=== PATIENT | male | born 1950 | race Caucasian/White ===

== ENCOUNTER 2019-06-03 04:57 | Inpatient (IN) ==
--- NOTE | 2019-05-28 11:31 | Anesthesiology Consultation ---
Date of Service May 28, 2019 Assessment & Plan (1) Encounter for pre-operative examination: Patient will need updated CBC and BMP prior to surgery. Check AM DOS if not done. Chart Review Chart Review: Acceptable Risk for Surgery (pending updated labs) and Patient NOT seen in Pre Admission Testing History Surgery Operation Date: 06/03/19 07:00 Proposed Procedures p Left Carotid Endarterectomy - Jose Ivory MD Height/Weight Height: 6 ft 1.5 in Weight: 98.883 kg Allergies Allergy/AdvReac Type Severity Reaction Status Date / Time No Known Allergies Allergy Verified 05/26/19 08:45 Medications Home Medications Medication Instructions Recorded Confirmed Last Taken aspirin [Aspir-81] 81 mg PO QAM 02/26/19 05/26/19 Unknown multivitamin 1 tab PO QAM 02/26/19 05/26/19 Unknown clopidogrel 75 mg tablet 75 mg PO QAM 05/13/19 05/26/19 Unknown Past Medical History Medical History Arthritis Cardiac murmur Per echo 05/19/19 mild MR only. Carotid artery stenosis Per 03/26/19 doppler, B/L > 70% stenosis of internal carotids. Carotid bruit Chronic back pain Knee pain Patient was scheduled for TKA to be done 03/26, but carotid doppler AM DOS showed severe stenosis; case canceled. Temporomandibular joint disorder POPS BILAT-HAS NEVER LOCKED Past Surgical History Surgical History History of herniorrhaphy (~1965) X 2, RIGHT AND LEFT Hx of colonoscopy Social History Smoking Status: Former smoker Smoking cigarettes per day: h/o 1ppd Do You Dip or Chew Tobacco: No Smoking End Date: 2016 Hx Alcohol Use: No Hx Substance Use: No substance use type: does not use Testing Electrocardiogram Date: 03/07/19 Findings: + NSR @ (65) Chest X-Ray Date: 03/07/19 Findings: + NAD Echocardiogram Date: 05/19/19 EF: 61% The left ventricle size and systolic function are normal. Aortic valve is trileaflet and is mildly thickened. No aortic stenosis documented. Mitral valve structure is degenerative with mild mitral regurgitation.
[2019-06-03] MEDS ORDERED: LR 15ML/HR IV SCH (06:00)
[2019-06-03] MEDS ORDERED: fentaNYL citrate 100 MCG/2 ML VIAL IV PRN (06:30)
[2019-06-03] MEDS ORDERED: ONDANSETRON INJ 2 MG/ML 2 ML VIAL IV PRN ×2 (06:30→10:46)
[2019-06-03] MEDS ORDERED: ATROPINE SULFATE 0.1 MG/ML 10ML SYR IV PRN (06:30)
[2019-06-03] MEDS ORDERED: ePHEDrine sulfate 50 MG/ML AMP IV PRN (06:30)
[2019-06-03] MEDS ORDERED: fentaNYL citrate 100 MCG/2 ML VIAL ONE ×2 (06:38)
[2019-06-03] MEDS ORDERED: LIDOCAINE HCL 2% 2 ML VIAL/AMP(20MG/ML) INFIL ONE (06:38)
[2019-06-03] MEDS ORDERED: ONDANSETRON INJ 2 MG/ML 2 ML VIAL ONE (06:38)
[2019-06-03] MEDS ORDERED: PROPOFOL IV EMULSION 10 MG/ML 20 ML VIAL IV ONE (06:38)
[2019-06-03] MEDS ORDERED: DEXAMETHASONE SOD INJ 4 MG/ML VIAL ONE (06:38)
--- NOTE | 2019-06-03 06:42 | History & Physical Bridge Note ---
Date of Service June 03, 2019 History & Physical Bridge Note I have examined the patient, reviewed the History & Physical and in the interval since the performance of the History & Physical I have noted the following changes of clinical significance: no changes noted SO at bedside all questions answered pt marked
[2019-06-03] MEDS ORDERED: BACITRACIN INJ 50,000 UNIT VIAL ONE (06:45)
[2019-06-03] MEDS ORDERED: LIDOCAINE/EPINEPHRINE 1% 20 ML VIAL ONE (06:45)
[2019-06-03] MEDS ORDERED: HEPARIN (PORCINE) 1000 UNIT/ML 10 ML (CATH LAB USE ONLY) ONE (06:45)
[2019-06-03] MEDS ORDERED: CEFAZOLIN 250 MG/ML 1 GM VIAL ONE (07:38)
[2019-06-03] MEDS ORDERED: CEFAZOLIN 2000MG 2,000 MG/15 ML SYR IV ONE (07:44)
[2019-06-03] MEDS ORDERED: SURGICEL ABSORB HEMOSTAT 2IN X 14IN TOP ONE (07:44)
[2019-06-03] MEDS ORDERED: ROCURONIUM BROMIDE 10 MG/ML 5 ML VIAL ONE ×6 (07:47→09:31)
[2019-06-03] MEDS ORDERED: ATROPINE SO4 1 MG/ML 1ML VIAL ONE (07:47)
[2019-06-03] MEDS ORDERED: ePHEDrine sulfate 50 MG/ML SYR ONE (08:11)
[2019-06-03] MEDS ORDERED: PHENYLEPHRINE 100MCG/ML 5ML SYR ONE (08:11)
--- NOTE | 2019-06-03 08:55 | Post Operative Brief Note ---
PG Immediate Post Op with CF Date of Surgery June 03, 2019 Pre & Post Diagnosis Operation Date: 06/03/19 07:00 Pre-Op Diagnosis: Carotid Stenosis Post-Op Diagnosis: Carotid Stenosis Procedure Operation Date: 06/03/19 07:00 Actual Procedures p Left Carotid Endarterectomy with Bovine Patch, Angioplasty(Left) - Jose Ivory MD Surgeon Jose Ivory MD Doctor Of Pharmacy b james chu Estimated Blood Loss 50 Findings Consistent with Post-Op Diagnosis Specimens Specimen Description: A. Left carotid plaque B. Left interlumenal at carotid bifurcation Drains Martin Drain
[2019-06-03] MEDS ORDERED: LABETALOL HCL IV 5 MG/ML 20ML IV ONE (09:30)
[2019-06-03] MEDS ORDERED: NEOSTIGMINE METHYLSULFATE 5 MG/5 ML SYR ONE (09:31)
[2019-06-03] MEDS ORDERED: PROTAMINE SULFATE 10 MG/ML 5 ML VIAL ONE (09:31)
[2019-06-03] MEDS ORDERED: GLYCOPYRROLATE 0.2 MG/ML VIAL ONE (09:31)
[2019-06-03] MEDS ORDERED: HEPARIN SOD (PORCINE) 1000 UNIT/ML 10 ML VIAL ONE (09:31)
--- NOTE | 2019-06-03 09:57 | Operative Report ---
Post Operative Report Pre & Post Diagnosis Operation Date: 06/03/19 07:00 Pre-Op Diagnosis: Carotid Stenosis Post-Op Diagnosis: Carotid Stenosis Procedure Operation Date: 06/03/19 07:00 Actual Procedures p Left Carotid Endarterectomy with Bovine Patch, Angioplasty(Left) - Jose Ivory MD The patient was brought into the operating room theater general endotracheal anesthesia the left neck and chest was prepped Betadine scrub solution properly draped roll is been pertinent transversely across the scapula systemic antibiotics given timeout was had patient identified this point 1% Xylocaine with epi was used to infiltrate just anterior of the sternocleido on the left side and incision was made approximately 4 inches long deep to subcutaneous tissue retracting the sternocleido laterally dissecting down into the neurovascular bundle facial vein was identified was elevated divided and ligated with 2-0 silk there were a few other venous branches coming over another table was pretty much ligated patient had been on Plavix hemostasis try to be very careful. We dissected down unable to dissect out the common carotid which we encircled a vessel loop then I took her dissection more cephalad and identified the superior thyroid were weakly controlled a Elena tie of 2 oh then the external carotid was encircled with vessel loop at one point while we are di ssecting away from the carotid body the patient became bradycardic but immediately recovered. Dissection into the internal carotid area was identified actually once we got the just beyond the bifurcation there is seem to be minimal dissection needed therefore terminating what appeared to be atherosclerosis right at the bifurcation we identified the hypoglossal nerve and encircled with vessel loop to retracted out of the way. We then the internal carotid was taken off to an area that felt completely normal and we used up to the vessel loop around that area. At this point systemic heparinization was given with 10,000 units waiting approximately 5 minutes in the meantime we prepped the bovine patch after 5 minutes we clamped the internal carotid area then the external and then the common carotid arteriotomy in the common carotid was made extending up towards the internal carotid which we have suspected the disease was right at the takeoff but is interesting and look like the there was no plaque that was a significant stenosis and just proximal to that there was a 2 piece of tissue that either appeared to be as an organized clot for the possibility that this been an embolus from the myxoma we took that as possibility aside and sent for permanent section separately we opened up the internal carotid just beyond the the limiting of her stenosis and the artery itself completely normal. We started dissecting out in the circular fibers to completely free up at the common carotid using 5-0 silk suture stay sutures in the plane of dissection circular V nerve conductions and inversion endarterectomy in the external and up to the internal carotid area were tapered off very nicely. The field was irrigated appeared normal. We had prepped and [place] shunt putting a silk time between flushing it at this point we inserted in the internal carotid area and excellent backbleeding control that with a vessel loop and similarly placed in the common carotid and the shunt was then placed. A vein or patch was then brought up on the field and we ablated with 6-0 Prolene suture. Completely before completing time the fact we then elevated the shunt out of the wound by the endarterectomy site clamped both with 2 hemostats divided and took out the internal carotid shunt part first control the backbleeding with bulldog clamp then removed this from the common carotid in a similar fashion control it with vascular clamp. The endarterectomy site was then suctioned out again we placed a #4 bakes dilator beyond the internal carotid area which went without any problem backbleeding was appreciated and appeared excellent. Control the backbleeding with [place] forcep. Flush the external then the common suctioned out the endarterectomy site and then tied down the patch. A few small bleeders on the suture line were controlled with 6-0 Prolene once we took the clamp off the external carotid patch appeared to be intact we then flushed the common carotid over the common carotid and hemostasis was excellent and last we took the internal carotid clamp. Flow was reestablished lap was placed in the field we reversed the heparin with 40 mg of protamine. After we thought that the operative field was readily dry elected to drain it with a Gilbert drain that was brought in between 2 heads of the sternocleido and placed along the carotid closing the wound multiple layer 202 0 Vicryl zoë for skin edges dressing was applied procedure was tolerated well by the patient estimated blood loss 50 cc the end of procedure the patient was neurologically intact and extubated. AddendFrancis PRADO was present throughout the procedure and help with retraction exposure and wound closure Surgeon Jose Ivory MD Migration Agent joss prado Estimated Blood Loss 50 Findings Consistent with Post-Op Diagnosis Specimens plaque and soft contents at stenotic area Description of Procedure merda I attest to the content of the Intraoperative Record and any orders documented therein. Any exceptions are noted below.
--- NOTE | 2019-06-03 10:02 | Anesthesiology Progress Note ---
Date of Service June 03, 2019 Anesthesia Post Procedure Vital Signs Vital Signs: Temp Pulse Pulse Resp BP Pulse Ox 06/03/19 09:55 97.5 F L 59 L 16 102/55 L 94 06/03/19 09:45 59 L 16 103/55 L 94 06/03/19 09:35 60 16 105/58 L 95 06/03/19 09:25 58 L 16 98/54 L 95 06/03/19 09:16 97.9 F 64 16 114/63 93 06/03/19 05:45 97.7 F 66 20 117/75 95 Transfer of Care Handoff Completed per policy Notes Mental Status: alert / awake / arousable and participated in evaluation Patient Amnestic to Procedure: Yes Nausea / Vomiting: adequately controlled Pain: adequately controlled Airway Patency, RR, SpO2: stable & adequate BP & HR: stable & adequate Hydration State: stable & adequate Anesthetic Complications: no major complications apparent and Pt Satisfied with anesthetic care
[2019-06-03] MEDS ORDERED: NITROGLYCERIN/D5W 100MCG/ML 250 ML IV SCH (10:46)
[2019-06-03] MEDS ORDERED: LACTATED RINGER'S 1,000 ML IV SCH (10:46)
[2019-06-03] MEDS ORDERED: ACETAMINOPHEN 325 MG TAB PO PRN (10:46)
[2019-06-03] MEDS ORDERED: MoRPHine SULFATE 4 MG/ML 1 ML CARP\\VIAL IV PRN (10:46)
[2019-06-03] MEDS: HYDROCODONE/ACETAMOPHEN 5/325MG TAB PO PRN ×2 (11:30→21:10)
--- NOTE | 2019-06-03 11:38 | Critical Care Consultation ---
Date of Consultation June 03, 2019 Assessment & Plan (1) Osteoarthritis of left knee: Reason Critically Ill: 68-year-old male here with a PMHx significant for bilateral carotid stenosis, osteoarthritis, and tobacco abuse in remission who presented with carotid stenosis found on preoperative evaluation for knee surgery and who was admitted for left carotid endarterectomy. Neuro - [facility] ICU: NEGATIVE Cardiac - Bilateral carotid stenosis Bilateral (>70%) internal carotid artery stenosis noted on carotid Doppler 03/26/2019 Clinically asymptomatic prior to presentation Postop day 0 S/P left carotid endarterectomy, no complications during surgery and patient appears clinically well CBC qAM Respiratory - - Denies history of respiratory disease including COPD; has right expiratory wheezes on exam and endorses [id number] smoking history No home oxygen requirement prior to admission, currently on 4 L nasal cannula with SPO2 greater than 95% Continue to wean oxygen to SPO2 greater than 90% GI - Full liquid diet RENAL/LYTES - OSH 05/19/2019 sodium 141 potassium 3.9 chloride 106 carbon dioxide 26.4 BUN 13.7 creatinine 1.07 -No electrolyte abnormalities, no decreased renal function DIGITAL ASSISTANT BMP qAM - No concerns at this time. ENDO - No history of diabetes, postop glucose 135 HEME - OSH preop hemoglobin 13.2 CBC tomorrow morning No signs of acute bleeding ID - No concerns for infection at this point. INTEGUMENTARY - Left carotid surgical incision with dressing in place, C/D/I. Routine wound care. LINES/IV ACCESS - PIVs intact. DVT PROPHYLAXIS - SCDs, ambulate Thank you for allowing us to be part of this patient's care. Please refer to Dr. Harris's documentation for any further recommendations. (2) Postop carotid endarterectomy surveillance, encounter for: (3) Carotid stenosis, bilateral: Supervising Physician Co-Signing Physician Notes Dr. English was resident physician during care of patient. I separately evaluated patient for rowe portions of the history and the exam. I was present during the critical portion of medical decision making, and I discussed the case with the resident. I generally agree with the findings and plan. Postop day 0 from left carotid endarterectomy. Patient speaking normally, good spirits. History of Present Illness Reason for Consultation: Left carotid endarterectomy Requesting Physician: Jose Ivory Attending Physician: Jose Ivory MD History of Present Illness Amos is a 68-year-old male with past medical history of knee pain who was admitted to [facility] for left carotid endarterectomy after he was noted to have bilateral carotid stenosis on preoperative evaluation for knee surgery. He was originally scheduled for left knee surgery 03/2019 and pr esented for a vascular carotid ultrasound the day before surgery. Carotid stenosis was observed and his orthopedic surgery was postponed. He reports that his right carotid stenosis was worse than his left, but that he was told his right carotid was not amenable to surgical intervention. He reports he had also been told in February 2019 that he had a cardiac murmur for which she had an echocardiogram in early May at the [facility], but has not been contacted with the results. He denies cardiac, constitutional, and respiratory symptoms prior to admission. Specifically he denies chest pain, chest pressure, palpitations, shortness of breath, difficulty breathing, lightheadedness, dizziness, general weakness, focal weakness, numbness, tingling, syncope, presyncope, vision changes, visual field cuts, and headache. He reports he was last ill in February when he had a UTI which resolved with antibiotics, and otherwise denies past medical history. Past medical history: None per patient. Was started on aspirin and Plavix when his carotid stenosis was noted. Past surgical history: Bilateral hernia repair. Denies other surgical history. Medicines: Denies medications other than aspirin/Plavix noted above. Allergies: Denies any known food or drug allergies Family history: Denies family history of coronary artery disease, hypertension, hyperlipidemia, stroke clotting, bleeding and thyroid disease. Endorses history of pancreatic cancer in his father. Social: Denies current tobacco use. Former [id number] smoking history, quit 2 to 3 years ago. Denies alcohol use Denies recreational drug use Lives at his home with his Allergies Allergy/AdvReac Type Severity Reaction Status Date / Time No Known Allergies Allergy Verified 06/03/19 05:35 Home Medications Home Medications Medication Instructions Recorded Confirmed Type aspirin [Aspir-81] 81 mg PO QAM 02/26/19 06/03/19 History multivitamin 1 tab PO QAM 02/26/19 06/03/19 History clopidogrel 75 mg tablet 75 mg PO QAM 05/13/19 06/03/19 History hydrocodone-acetaminophen [[place]] 1 - 2 tab PO Q4H PRN #10 tab 08/27/19 Rx Patient History Medical History Chronic back pain Arthritis Cardiac murmur Per echo 05/19/19 mild MR only. Carotid artery stenosis Per 03/26/19 doppler, B/L > 70% stenosis of internal carotids. Carotid bruit Knee pain Patient was scheduled for TKA to be done 03/26, but carotid doppler AM DOS showed severe stenosis; case canceled. Temporomandibular joint disorder POPS BILAT-HAS NEVER LOCKED Surgical History Hx of colonoscopy S/P carotid endarterectomy (06/03/19) Left Carotid Endarterectomy with Bovine Patch, Angioplasty Dr. Escobar 06/03/19 History of herniorrhaphy (~1965) X 2, RIGHT AND LEFT Social History Preferred Language: [place] Communication Ability: Effective Hvac Installer Required: No Beliefs That Will Affect Care: None Current Living Situation: Spouse Other Information That Helps Us Care for You: No Feels Safe at Home: Yes Safety Concerns: Feels Safe At This Time Smoking Status: Former smoker Cigarettes Per Day: h/o 1ppd ; Do You Dip or Chew Tobacco: No ; Smoking End Date: 09/07/17 ; Second Hand Exposure: No ; Tobacco Cessation Education Requested by Patient: No Hx Alcohol Use: No Hx Substance Use: No Review of Systems Review of Systems: Constitutional: Denies fever, chills, malaise, weight change Eyes: Denies double vision, vision change, eye pain ENT: Denies ear pain, sore throat, sinus pain Cardiovascular: Denies chest pain, chest pressure, palpitations, extremity swelling Respiratory: Denies shortness of breath, cough, sputum production, difficulty breathing Gastrointestinal: Denies abdominal pain, nausea, vomiting, constipation, diarrhea Genitourinary: Endorses UTI in February, otherwise denies pain with urination, urinary urgency, urinary frequency Musculoskeletal: Endorses some postop pain and chronic left knee pain, otherwise denies weakness, muscle aches/pain, joint aches/pain Integumentary:Denies rash, lesions, bruising Neurological: Denies headache, numbness, tingling, focal weaknesss, etc Physical Exam Physical Exam: General: A&Ox3. NAD. Cooperative. Answers questions appropriately, thought process linear. HEENT: Normocephalic. Surgical dressing overlying left carotid, C/D/I. Pupils equal and reactive to light and accommodation. Extraocular movements intact without nystagmus or saccades. No visual field cuts. No diplopia. Left neck edema with right uvular deflection appreciated, no clinically significant airway limitation. Pulm: Expiratory right upper and right lower lobe wheezes. Otherwise CTAB A&P. -rales. Symmetrical chest rise. Moderate air movement. No increase work of breathing. No respiratory distress. Cardiac: RRR, -mg. iii/vi Systolic murmur best appreciated at right upper sternal border. Radial pulses intact and symmetrical. Abdominal: Nontender, nondistended, soft. BS present. Extremities: Warm, dry. Finger flexion/extension, interosseal, wrist flexion/extension, elbow flexion/extension, shoulder internal/external rotation, knee flexion/extension, ankle dorsiflexion/plantarflexion intact with 5/5 strength bilaterally. No sensory deficits in distal extremities. Results & Data Vital Signs (Past 12 Hours) Vital Signs Temp Pulse Pulse Resp BP Pulse Ox 06/03/19 10:04 36.4 C L 59 L 16 105/58 L 94 06/03/19 09:55 36.4 C L 59 L 16 102/55 L 94 06/03/19 09:45 59 L 16 103/55 L 94 06/03/19 09:35 60 16 105/58 L 95 06/03/19 09:25 58 L 16 98/54 L 95 06/03/19 09:16 36.6 C 64 16 114/63 93 06/03/19 05:45 36.5 C 66 20 117/75 95 PG Care Time/CCT Total # of Minutes Spent Total Time Spent with Patient: Total time spent is greater than 50% in coordination of care (as documented) at patient's floor/unit and/or counseling patient: Resident Activity Tracking Resident Involvement: Resident Care Provided Care Provided: Adult Hospital Medicine
[2019-06-04 04:57] LABS: Basophils # (auto) 0.01 K/uL (0-0.2); Basophils % (auto) 0.1 %; Eosinophils # (auto) 0.04 K/uL (0-0.5); Eosinophils % (auto) 0.3 %; Hematocrit (blood only) 36.2 % (42-52); Hemoglobin 12.6 g/dL (14.0-18.0); Immature Granulocytes # (auto) 0.01 K/uL (0.00-0.02); Immature Granulocytes % (auto) 0.1 %; Lymphocytes # (auto) 2.58 K/uL (1.2-3.4); Lymphocytes % (auto) 19.5 %; Mean Corpuscular Hgb Conc 34.8 g/dL (32-36); Mean Corpuscular Volume 98.6 fL (80-100); Mean Platelet Volume 8.6 fL (7.4-10.4); Monocytes # (auto) 1.24 K/uL (0.11-0.59); Monocytes % (auto) 9.4 %; Neutrophils # (auto) 9.33 K/uL (1.4-6.5); Neutrophils % (auto) 70.6 %; Platelet Count 133 K/uL (130-400); RDW Coefficient of Variation 13.8 % (11.5-14.5); RDW Standard Deviation 49.6 fL (36.4-46.3); Red Blood Count 3.67 M/uL (4.7-6.1); White Blood Count 13.21 K/uL (4.8-10.8)
[2019-06-04 05:12] LABS: BUN Creatinine Ratio 12.7 (10-20); Calcium 8.4 mg/dl (8.5-10.1); Creatinine Clr Calc Pharmacy 99.5 ml/min; Est GFR (African American) 102.3; Est GFR (Non-African American) 88.3; Magnesium 2.2 mg/dl (1.8-2.4); Potassium 4.1 mmol/L (3.5-5.1)
[2019-06-04 05:13] LABS: Phosphorus 3.3 mg/dl (2.5-4.9)
--- NOTE | 2019-06-04 05:48 | Critical Care Progress Note ---
Date of Service June 04, 2019 Assessment & Plan (1) Carotid stenosis, bilateral: Reason Critically Ill: 68-year-old male here with a PMHx significant for bilateral carotid stenosis, osteoarthritis, and tobacco abuse in remission who presented with carotid stenosis found on preoperative evaluation for knee surgery and who was admitted for left carotid endarterectomy. Neuro - [facility]: NEGATIVE Cardiac - Bilateral carotid stenosis Bilateral (>70%) internal carotid artery stenosis noted on carotid Doppler 03/26/2019 Clinically asymptomatic prior to presentation Postop day 1 S/P left carotid endarterectomy, no complications during surgery and patient appears clinically well. Incision well healing. CBC qAM Nonsustained VTach - Single episode 06/03 at ~2200hrs <20 seconds. - Asymptomatic without hemodynamic compromise - No intervention at this time, but pt should followup with cardiology/PCP as outpatient. Recommendations for f/u placed into discharge instructions. Respiratory - - Denies history of respiratory disease including COPD; has right expiratory wheezes on exam and endorses [id number] smoking history No home oxygen requirement prior to admission, currently weaned to room air with SPO2 greater than 95% GI - Regular Diet RENAL/LYTES - OSH 05/19/2019 sodium 141 potassium 3.9 chloride 106 carbon dioxide 26.4 BUN 13.7 creatinine 1.07 -No electrolyte abnormalities, no decreased renal function this morning - No concerns at this time. ENDO - No history of diabetes, AM glucose 108 HEME - OSH preop hemoglobin 13.2 Hgb stable at 12.6 No signs of acute bleeding ID - No concerns for infection at this point. INTEGUMENTARY - Left carotid surgical incision well healing, no signs of infection or dehiscence. Routine wound care. LINES/IV ACCESS - PIVs intact. DVT PROPHYLAXIS - SCDs, ambulate Dispo: Stable for downgrade Thank you for allowing us to be part of this patient's care. Please refer to Dr. Harris's documentation for any further recommendations. (2) Postop carotid endarterectomy surveillance, encounter for: (3) Nonsustained ventricular tachycardia: (4) Osteoarthritis of left knee: (5) Encounter for pre-operative examination: Supervising Physician Co-Signing Physician Notes Dr. English was resident physician during care of patient. I separately evaluated patient for rowe portions of the history and the exam. I was present during the critical portion of medical decision making, and I discussed the case with the resident. I generally agree with the findings and plan. Patient improved and will be discharged later today per general surgery. Dr. English informed primary team of overnight asymptomatic nonsustained V. tach. We are starting the patient on high intensity statin therapy. I would recommend follow-up with either PCP or cardiology given the nonsustained ventricular tachycardia and starting of statin therapy. The patient denies being on cholesterol medication previously. He has follow-ups with cardiology and his primary care physician within the next 4 weeks as he is being medically optimized for ultimately a knee replacement. Subjective Amos reports he feels 'great' this morning. He reports the dressing from his L neck was removed and he has not had any bleeding. He still feels 'swollen inside the neck.' He is aware he had a short episode of VTachy at 10:00pm last night because staff told him so, but he reprots he was completely asymptomatic without lightehadedness, dizziness, diaphoresis, chest pain, chest pressure, palpitations, or shortness of breath during this time. Denies any symptoms other than feeling of a 'swollen neck inside'. Specifically, denies chest pain, chest pressure, palpitations, lightheadedness, dizziness, presyncope, syncope, shortness of breath, neck pain, limited neck mobility, vision change, amurosis, weakness, and sensory change. No questions or concerns at time of vist. Review of Systems Review of Systems: Constitutional: Denies fever, chills, malaise Eyes: Denies double vision, vision change, eye pain ENT: Denies ear pain, sore throat, sinus pain Cardiovascular: Denies Chest pain, chest pressure, palpitations, extremity swelling Respiratory: Denies shortness of breath, sputum production, difficulty breathing. Endorses mild cough with clear white sputum production. Gastrointestinal: Denies abdominal pain, nausea, vomiting, constipation, diarrhea Genitourinary: Denies pain with urination, urinary urgency, urinary frequency Musculoskeletal: Denies weakness, muscle aches/pain, joint aches/pain Integumentary: Endorses surgical incision on the L carotid without pain, leakage. Neurological: Denies headache, numbness, tingling, focal weakness Physical Exam Physical Exam: General: A&Ox3. NAD. Cooperative. Speech fluent, thought process linear. HEENT: L neck with surgical incision closed with stapes, intact without erythema/warmth/exudate. PERLAA. EoM intact without nystagmus. Posterior pharynx with mild L edema and slight rightward deflection of the uvula without airway compromise. No facial asymmetry, facial sensation intact and symmetrical. Pulm: Trace bilateral upper lobe end expiratory wheezes improved from prior, - rales, -rhonchi. Symmetrical chest rise. No increased work of breathing. No respiratory distress. Cardiac: RRR, +systolic murmer. -rg. Radial pulses intact and symmetrical. No JVD. Abdominal: Nontender, nondistended, soft. BS present. Extremities: Moves all extremities equally, no sensory deficits, finger flexion/extension, elbow flexion/extension, knee flexion/extension, ankle plantarflexion/dorsiflexion 5/5 bilaterally. Results & Data Vital Signs (Past 12 Hours) Vital Signs Temp Pulse Pulse Resp BP BP BP 06/04/19 05:00 61 61 17 121/47 L 122/67 06/04/19 04:00 36.9 C 66 66 21 132/53 L 132/46 L 115/58 L 06/04/19 03:00 67 67 20 126/56 L 119/58 L 06/04/19 02:00 60 60 22 114/52 L 121/62 06/04/19 01:00 61 61 16 113/47 L 119/61 06/04/19 00:00 36.9 C 60 60 18 135/54 L 133/54 L 129/60 06/03/19 23:00 63 63 18 100/42 L 117/59 L 06/03/19 22:00 59 L 59 L 18 117/52 L 120/62 06/03/19 21:00 61 61 18 115/51 L 117/63 06/03/19 20:00 36.9 C 61 61 20 110/48 L 113/48 L 116/62 Pulse Ox 06/04/19 05:00 93 06/04/19 04:00 97 06/04/19 03:00 99 06/04/19 02:00 93 06/04/19 01:00 95 06/04/19 00:00 95 06/03/19 23:00 93 06/03/19 22:00 94 06/03/19 21:00 92 06/03/19 20:00 92 PG Care Time/CCT Total # of Minutes Spent Total Time Spent with Patient: Total time spent is greater than 50% in coordination of care (as documented) at patient's floor/unit and/or counseling patient: Resident Activity Tracking Resident Involvement: Resident Care Provided Care Provided: Adult Hospital Medicine
--- NOTE | 2019-06-04 07:04 | Surgery Progress Note ---
Date of Service June 04, 2019 Assessment & Plan (1) Carotid stenosis, bilateral: POD #1 LCE intraop findings discussed with pt will check later this am for possible d/c will d/c a line and fluids and oxy keep on Plavix f/u office 1 week no driving for one week or lifting greater than 10 lbs Subjective feels fine no problems tolerated diet voiding fine minimal neck discomfort Physical Exam Physical Exam: alert coherent up in chair neck without hematoma minimal drainage from parvin (removed) tongue minimal deviation to left not unexpected traction on hypoglossal nerve during surgery will resolve faint left sup temp pulse Results & Data Vital Signs (Past 12 Hours) Vital Signs Temp Pulse Pulse Resp BP BP BP 06/04/19 06:00 58 L 58 L 17 120/49 L 131/61 06/04/19 05:00 61 61 17 121/47 L 122/67 06/04/19 04:00 36.9 C 66 66 21 132/53 L 132/46 L 115/58 L 06/04/19 03:00 67 67 20 126/56 L 119/58 L 06/04/19 02:00 60 60 22 114/52 L 121/62 06/04/19 01:00 61 61 16 113/47 L 119/61 06/04/19 00:00 36.9 C 60 60 18 135/54 L 133/54 L 129/60 06/03/19 23:00 63 63 18 100/42 L 117/59 L 06/03/19 22:00 59 L 59 L 18 117/52 L 120/62 06/03/19 21:00 61 61 18 115/51 L 117/63 06/03/19 20:00 36.9 C 61 61 20 110/48 L 113/48 L 116/62 Pulse Ox 06/04/19 06:00 96 06/04/19 05:00 93 06/04/19 04:00 97 06/04/19 03:00 99 06/04/19 02:00 93 06/04/19 01:00 95 06/04/19 00:00 95 06/03/19 23:00 93 06/03/19 22:00 94 06/03/19 21:00 92 06/03/19 20:00 92 PG Care Time/CCT Total # of Minutes Spent Total Time Spent with Patient: Total time spent is greater than 50% in coordination of care (as documented) at patient's floor/unit and/or counseling patient:
[2019-06-04] MEDS ORDERED: ASPIRIN 81 MG ECTAB PO SCH (09:00)
[2019-06-04] MEDS ORDERED: CLOPIDOGREL BISULFATE 75 MG TAB PO SCH (09:00)
[2019-06-04] MEDS ORDERED: ATORVASTATIN 40 MG TAB PO SCH (09:45)
== END 2019-06-04 12:55 | disposition home or self-care (01) | DRG 39 ==
LOC: ASU 04:57 → 1E 09:30